=== PATIENT | male | born 1990 | race Caucasian/White ===

== ENCOUNTER 2018-10-02 17:47 | Emergency (ER) | payer OTHER ==
[~2018-10-02] VITALS: Ht 180.3 cm; Wt 66.2 kg
[2018-10-02] MEDS ORDERED: NOHOMEMEDICATIONS (18:10)
[2018-10-02 19:00] LABS: ABSOLUTE EOSINOPHILS 0.2 thou/uL (0.0-0.7); ABSOLUTE LYMPHOCYTES 1.2 thou/uL (0.8-5.3); ABSOLUTE MONOCYTES 0.5 thou/uL (0.0-1.2); ABSOLUTE NEUTROPHILS 1.9 thou/uL (1.6-8.1); BASOPHILS 0.8 %; EOSINOPHILS 6.2 %; HEMATOCRIT 45.2 % (42.0-52.0); HEMOGLOBIN 15.2 gm/dL (14.0-18.0); LYMPHOCYTES 29.9 %; MCH 31.3 pg (26.0-34.0); MCHC 33.5 g/dL (28.0-37.0); MCV 93.2 fL (80.0-100.0); MONOCYTES 13.8 %; MPV 7.3 fl. (7.2-11.1); NUCLEATED RBCS 0 /100WBC; PLATELET COUNT* 284 thou/uL (150-400); POLYS 49.3 %; RBC 4.85 mil/uL (4.50-6.00); RDW-CV 14.1 % (10.5-14.5); WBC 3.9 thou/uL (4.0-11.0)
[2018-10-02 19:06] LABS: URINE BILIRUBIN NEGATIVE (Negative); URINE BLOOD NEGATIVE (Negative); URINE CLARITY CLEAR; URINE COLOR YELLOW; URINE GLUCOSE-RANDOM NEGATIVE (Negative); URINE KETONES NEGATIVE (Negative); URINE LEUKOCYTES-REFLEX NEGATIVE (Negative); URINE NITRITE-REFLEX NEGATIVE (Negative); URINE PROTEIN NEGATIVE (Negative); URINE SPECIFIC GRAVITY 1.025 (1.005-1.030); URINE UROBILINOGEN 0.2 E.U./dl (0.2-1.0)
[2018-10-02 19:08] LABS: CALCIUM 8.4 mg/dL (8.5-10.1); POTASSIUM 3.7 mmol/L (3.5-5.1)
[2018-10-02 19:12] LABS: ALBUMIN 3.3 g/dL (3.4-5.0); TOTAL BILIRUBIN 0.2 mg/dL (<0.1-1.0); TOTAL PROTEIN 7.1 g/dL (6.4-8.2)
[2018-10-02 19:15] LABS: AMP/METHAMP POSITIVE (Negative); BARBITURATES Negative (Negative); BENZODIAZEPINES Negative (Negative); COCAINE Negative (Negative); METHADONE Negative (Negative); OPIATES Negative (Negative); PCP Negative (Negative); THC Negative (Negative)
[2018-10-02] MEDS ORDERED: NAPROSYN500 MG PO (20:14)
[2018-10-02] MEDS ORDERED: FLEXERIL PO (20:14)
[2018-10-02] MEDS ORDERED: PHENERGAN 25 MG25 M1 PO (20:14)
[2018-10-02 20:46] VITALS: BP 116/78
== END 2018-10-02 20:47 | disposition home or self-care (01) ==
LOC: M.ERS 17:47
PROVIDERS: Physician Assistant
DX: R10.12 Left upper quadrant pain (principal); M54.9 Dorsalgia, unspecified; R11.2 Nausea with vomiting, unspecified; F17.200 Nicotine dependence, unspecified, uncomplicated

== ENCOUNTER 2019-01-13 06:07 | Emergency (ER) | payer OTHER ==
[~2019-01-13] VITALS: Ht 180.3 cm; Wt 69.4 kg
[~2019-01-13 06:07] MED LIST: FLEXERIL PO; NAPROSYN500 MG PO; NOHOMEMEDICATIONS; PHENERGAN 25 MG25 M1 PO
[2019-01-13 06:33] LABS: ABSOLUTE BASOPHILS 0.1 thou/uL (0.0-0.2); ABSOLUTE EOSINOPHILS 0.3 thou/uL (0.0-0.7); ABSOLUTE LYMPHOCYTES 2.6 thou/uL (0.8-5.3); ABSOLUTE MONOCYTES 0.8 thou/uL (0.0-1.2); BASOPHILS 0.9 %; EOSINOPHILS 4.6 %; HEMATOCRIT 45.5 % (42.0-52.0); LYMPHOCYTES 38.7 %; MCH 30.1 pg (26.0-34.0); MCHC 32.9 g/dL (28.0-37.0); MCV 91.4 fL (80.0-100.0); MONOCYTES 11.5 %; MPV 7.5 fl. (7.2-11.1); NUCLEATED RBCS 0 /100WBC; PLATELET COUNT* 263 thou/uL (150-400); POLYS 44.3 %; RBC 4.98 mil/uL (4.50-6.00); RDW-CV 14.1 % (10.5-14.5); WBC 6.7 thou/uL (4.0-11.0)
[2019-01-13 07:10] LABS: ALBUMIN 4.1 g/dL (3.4-5.0); CALCIUM 8.9 mg/dL (8.5-10.1); CREATININE 1.1 mg/dL (0.6-1.3); POTASSIUM 4.4 mmol/L (3.5-5.1); TOTAL BILIRUBIN 0.2 mg/dL (<0.1-1.0); TOTAL PROTEIN 7.6 g/dL (6.4-8.2)
[2019-01-13 07:34] VITALS: BP 124/86
== END 2019-01-13 07:36 | disposition home or self-care (01) ==
LOC: M.ERS 06:07
PROVIDERS: Personal Emergency Response Attendant
DX: R11.2 Nausea with vomiting, unspecified (principal)

== ENCOUNTER 2019-02-08 13:29 | Emergency (ER) | payer OTHER ==
[~2019-02-08] VITALS: Ht 182.9 cm; Wt 68.0 kg
[2019-02-08 13:58] LABS: URINE BILIRUBIN NEGATIVE (Negative); URINE BLOOD 1+ (Negative); URINE CLARITY CLEAR; URINE COLOR YELLOW; URINE GLUCOSE-RANDOM NEGATIVE (Negative); URINE KETONES NEGATIVE (Negative); URINE LEUKOCYTES-REFLEX 1+ (Negative); URINE NITRITE-REFLEX NEGATIVE (Negative); URINE PROTEIN NEGATIVE (Negative); URINE SPECIFIC GRAVITY 1.015 (1.005-1.030); URINE UROBILINOGEN 0.2 E.U./dl (0.2-1.0)
[2019-02-08 14:08] LABS: SQUAMOUS NONE SEEN /LPF (0-3)
[2019-02-08 14:15] LABS: URINE WBC-REFLEX 6-15 Few /HPF (0-5)
[2019-02-08 14:16] LABS: URINE RBC 3-10 Few /HPF (0-2)
[2019-02-08 14:17] LABS: BACTERIA-REFLEX 1-9 Few /HPF (None Seen); CASTS None Seen /LPF (None Seen); CRYSTALS None Seen /LPF (None Seen); MUCUS 4-6 Moderate strn/LPF (None Seen)
[2019-02-08 14:37] VITALS: BP 139/87
== END 2019-02-08 14:32 | disposition home or self-care (01) ==
LOC: M.ERS 13:29
PROVIDERS: Physician Assistant
DX: R36.9 Urethral discharge, unspecified (principal); Z20.2 Contact with and (suspected) exposure to infections with a predominantly sexual mode of transmission; F17.200 Nicotine dependence, unspecified, uncomplicated; F15.10 Other stimulant abuse, uncomplicated

== ENCOUNTER 2020-02-20 03:40 | Emergency (ER) | payer OTHER ==
[~2020-02-20] VITALS: Ht 180.3 cm; Wt 75.8 kg
[2020-02-20 04:36] LABS: URINE BILIRUBIN NEGATIVE (Negative); URINE BLOOD 3+ (Negative); URINE CLARITY CLEAR; URINE COLOR YELLOW; URINE GLUCOSE-RANDOM NEGATIVE (Negative); URINE KETONES TRACE (Negative); URINE LEUKOCYTES NEGATIVE (Negative); URINE NITRITE NEGATIVE (Negative); URINE PROTEIN NEGATIVE (Negative); URINE SPECIFIC GRAVITY 1.025 (1.005-1.030); URINE UROBILINOGEN 0.2 E.U./dl (0.2-1.0)
[2020-02-20 04:38] LABS: HEMATOCRIT 40.8 % (42.0-52.0); HEMOGLOBIN 14.3 gm/dL (14.0-18.0); MCV 91.4 fL (80.0-100.0); MPV 7.3 fl. (7.2-11.1); RBC 4.46 mil/uL (4.50-6.00); RDW-CV 13.6 % (10.5-14.5); WBC 9.8 thou/uL (4.0-11.0)
[2020-02-20 04:43] LABS: AMP/METHAMP POSITIVE (Negative); BARBITURATES Negative (Negative); BENZODIAZEPINES Negative (Negative); COCAINE Negative (Negative); METHADONE Negative (Negative); OPIATES Negative (Negative); PCP Negative (Negative); THC Negative (Negative)
[2020-02-20 04:51] LABS: CALCIUM 8.1 mg/dL (8.5-10.1); CREATININE 1.7 mg/dL (0.6-1.3); POTASSIUM 3.6 mmol/L (3.5-5.1)
[2020-02-20 04:56] LABS: ALBUMIN 3.8 g/dL (3.4-5.0); TOTAL BILIRUBIN 0.3 mg/dL (<0.1-1.0); TOTAL PROTEIN 6.8 g/dL (6.4-8.2)
[2020-02-20 05:03] LABS: ALCOHOL 194 mg/dL (<10); SALICYLATE 3.1 mg/dL (2.8-20.0)
[2020-02-20 05:13] LABS: ACETAMINOPHEN < 2 ug/mL (10-30)
[2020-02-20 05:39] LABS: CASTS None Seen /LPF (None Seen); MUCUS 4-6 Moderate strn/LPF (None Seen); SQUAMOUS 0-3 Few /LPF (0-3)
[2020-02-20 05:40] LABS: BACTERIA 1-9 Few /HPF (None Seen); CRYSTALS None Seen /LPF (None Seen); URINE WBC 0-5 Rare /HPF (0-5)
[2020-02-20 09:36] VITALS: BP 121/78
--- NOTE | 2020-02-20 09:54 | EKG ---
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1990 Requested By: Melissa Heard Order Number: [id number] MD: Juancho Lamb Measurements Intervals [place] Rate: 103 P: 76 ID: [id number] QRS: 76 QRSD: 98 T: 65 QT: 331 QTc: 434 Interpretive Statements Sinus tachycardia Probable left atrial enlargement Baseline wander in lead(s) II,III,aVF No previous ECG available for comparison Electronically Signed On 02-20-2020 9:54:27 CDT by Juancho Lamb [email or web address] <ELECTRONICALLY SIGNED> By: Juancho Lamb MD, [facility] 02/20/20 0954 0448 0448 Juancho Lamb MD, [facility] /EPI
== END 2020-02-20 09:39 | disposition home or self-care (01) ==
LOC: M.ERS 03:40
PROVIDERS: Personal Emergency Response Attendant
DX: F19.959 Other psychoactive substance use, unspecified with psychoactive substance-induced psychotic disorder, unspecified (principal); F10.129 Alcohol abuse with intoxication, unspecified; F17.210 Nicotine dependence, cigarettes, uncomplicated; Y90.6 Blood alcohol level of 120-199 mg/100 ml